=== PATIENT | male | born 1985 | race Caucasian/White ===

== ENCOUNTER 2016-10-24 06:03 | Inpatient (IN) | payer OTHER ==
--- NOTE | 2016-10-19 12:08 | PREOPHP ---
DATE OF ADMISSION: 10/24/2016 Scheduled date of admission 10/24/[address] Regis Stewart. Dear Dr. Stewart: Thank you very much for allowing me to participate in the care of Mr. Corcoran. HISTORY OF PRESENT ILLNESS: He is a charming 30-year-old gentleman with a history of L4-L5 disk dis ease that has failed conservative attempts at treatment. He is being brought in electively to have repair. PAST MEDICAL HISTORY: 1. L4-L5 disk disease with sciatica. 2. Usual childhood diseases. 3. History of varicella. PAST SURGICAL HISTORY: He has never had prior surgeries. ALLERGIES: HE HAS NO KNOWN MEDICAL ALLERGIES. MEDICATIONS: He is on no medications. SOCIAL HISTORY: He was born in [facility] and raised here. He has a high school education without experience. 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 Jana arce lives with his parents and pets and is single and reports he has not been sexually active since he injured his back. FAMILY HISTORY: Negative for coronary artery disease, positive for diabetes, positive for hypertens ion, negative for stroke. Negative for asthma, negative for glaucoma, positive for migraine, negati ve for colon cancer, negative for prostate cancer, negative for anesthesia reactions. REVIEW OF SYSTEMS: HEAD AND EYES: Fully negative. ENT: Negative. RESPIRATORY: Negative. CARDIAC: Negative. HEMATOLOGIC: Negative. GASTROINTESTINAL: Negative. UROLOGIC: Negative. PSYCHIATRIC: Negative. ENDOCRINE: Negative. MUSCULOSKELETAL: Notable for sciatica and otherwise negative. NEUROLOGIC: Similarly is notable for the sciatica symptoms and otherwise negative. GENERAL: Demonstrates no weight change, no fever, chills or sweats. No changing skin lesions and i s negative. PHYSICAL EXAMINATION: VITAL SIGNS: At time of physical exam, he has a height of 5 feet 10 inches, weight is 239 pounds, b lood pressure 124/72, pulse 80, temperature 98.7, respirations 16. HEENT: NC/AT; PERRL, EOMI, anicteric, fundi are without note; tympanic membranes are without note; oropharynx demonstrates no lesions. NECK: Supple. There is a midline trachea. There is no thyromegaly; pulses are 2+ without bruits. RESPIRATORY: Clear to auscultation and percussion. CARDIAC: Demonstrates no JVD, a regular rate and rhythm without rubs, murmurs or gallops. ABDOMEN: Soft, nontender, active bowel sounds, no hepatosplenomegaly, no CVA tenderness, no hernias , no bruits. EXTREMITIES: Demonstrate no clubbing, cyanosis, or edema. NEUROLOGIC: Nonfocal. LABORATORY DATA: Chest x-ray demonstrates fair inspiration, normal cardiac size and silhouette. No rmal bones and soft tissues, normal lungs. No evidence of TB; Sodium 143, potassium 4.3, chloride 9 7, bicarbonate 30, BUN 13, creatinine 0.9, random blood sugar 89. SGPT is elevated at 63, white coun t 8.3, hemoglobin 16.3, hematocrit 49.9, platelet count 225. Pro time 11.7 with an INR of 1.01. PT T is 33 seconds. Urinalysis 1.020, pH is 6.5, dipstick is negative. EKG demonstrates sinus rhythm at 70 with intervals 0.16, 0.10, 0.36 and axis of 40 degrees, nonspecific intraventricular conductio n delay, otherwise unremarkable. ASSESSMENT AND PLAN: Preoperative medical consultation prior to elective lumbar laminectomy versus microdiskectomy under general anesthesia. At this time, I find Mr. Corcoran to be an acceptable surg ical candidate and concur with your plans to proceed with surgery. Given his relative youth he is a little bit easier to evaluate. I believe he is at average surgical risk as compared to his young a ge-matched peers and should do well using all standard and routine anesthesia precautions. Using Go ldman's risk classification he is at low risk for cardiac complications. Dictated By: MICHELL CUNNINGHAM MD, JR/JOHNNY Conf#: [id number] DID#: [id number] CC: REGIS STEWART MD;*EndCC*
[~2016-10-24] VITALS: Ht 177.8 cm; Wt 105.7 kg
[2016-10-24] VITALS (32 sets, daily range): BP systolic 115–156; BP diastolic 52–79; PULSE 68–90; RESP 11–23; Ht 177.8 cm; Wt 105.7 kg
[2016-10-24] MEDS ORDERED: CEFAZOLIN 2 GM/50 ML (PMX) 50 ML IVPB ONE (06:37)
[2016-10-24] MEDS: LACTATED RINGER'S 1,000 ML IV* SCH ×2 (06:49)
--- NOTE | 2016-10-24 06:56 | HPN ---
Date/Time of Note Date/Time of Note DATE: 10/24/16 TIME: 06:56 Interval H&P Admission Note Pt. seen H&P reviewed: No system changes JANICE HICKS MD Oct 24, 2016 06:56
[2016-10-24] MEDS ORDERED: LIDOCAINE 2% (SDV) 5 ML INJ ONE (07:00)
[2016-10-24] MEDS ORDERED: PROPOFOL 20 ML ONE ×2 (07:00→11:43)
[2016-10-24] MEDS ORDERED: FENTAnyl 50 MCG/ML VIAL ONE ×2 (07:00→09:05)
[2016-10-24] MEDS ORDERED: OCULAR LUBRICANT 3.5 GM OPH OINT ONE (07:00)
[2016-10-24] MEDS ORDERED: SUCCINYLCHOLINE CHLORIDE 100 MG/5 ML SYG IV ONE (07:00)
[2016-10-24] MEDS ORDERED: ROCURONIUM 50 MG INJ ONE (07:00)
[2016-10-24] MEDS ORDERED: CEFAZOLIN 2 GM/50 ML (PMX) 50 ML IVPB SCH (07:00)
[2016-10-24] MEDS ORDERED: MIDAZOLAM 1 MG/ML 2 ML INJ ONE (07:00)
[2016-10-24] MEDS ORDERED: DEXAMETHASONE 4 MG/ML 1 ML INJ ONE (07:26)
[2016-10-24] MEDS ORDERED: ONDANSETRON 4 MG INJ ONE (07:26)
[2016-10-24] MEDS ORDERED: LABETALOL HCL 20MG INJ ONE ×2 (07:33→08:34)
[2016-10-24] MEDS ORDERED: GELATIN SIZE 100 SPONGE ONE (07:35)
[2016-10-24] MEDS ORDERED: BUPIVACAINE 0.25% (MPF) 10 ML 10 ML VIAL ONE (07:35)
[2016-10-24] MEDS ORDERED: POLYMYXIN/BACITRACIN 1L IRRIG ONE (07:35)
[2016-10-24] MEDS ORDERED: THROMBIN 5000 UNIT VIAL ONE (07:35)
[2016-10-24] MEDS ORDERED: hydrALAzine 20 MG INJ ONE (07:36)
[2016-10-24] MEDS ORDERED: HYDROmorphONE 2 MG/ML SYG ONE (07:38)
[2016-10-24] MEDS ORDERED: DEXTROSE ONE (07:39)
[2016-10-24] MEDS ORDERED: NICARDIPINE ONE (07:39)
[2016-10-24] MEDS ORDERED: nitroGLYCerin 50 MG INJ ONE (07:43)
[2016-10-24] MEDS ORDERED: MEPERIDINE 25 MG INJ IV PRN (08:30)
[2016-10-24] MEDS ORDERED: OXYCODONE/ACETAMINOPHEN (5/325) TAB PO PRN ×2 (08:30)
[2016-10-24] MEDS ORDERED: METOCLOPRAMIDE 10 MG INJ IV PRN (08:30)
[2016-10-24] MEDS ORDERED: hydrALAzine 20 MG INJ IV PRN (08:30)
[2016-10-24] MEDS ORDERED: PROCHLORPERAZINE 10 MG INJ IV PRN (08:30)
[2016-10-24] MEDS ORDERED: FENTAnyl 50 MCG/ML VIAL IV PRN (08:30)
[2016-10-24] MEDS ORDERED: HYDROmorphONE (0.2 MG/ML) 10ML SYG IV PRN ×2 (08:30)
[2016-10-24] MEDS ORDERED: LABETALOL HCL 20MG INJ IV PRN (08:30)
[2016-10-24] MEDS ORDERED: DIPHENHYDRAMINE 50 MG INJ IV PRN (08:30)
[2016-10-24] MEDS ORDERED: ONDANSETRON 4 MG INJ IV PRN (08:30)
[2016-10-24] MEDS ORDERED: GLYCOPYRROLATE 1 MG INJ ONE (09:15)
[2016-10-24] MEDS ORDERED: NEOSTIGMINE 3 MG/3 ML SYRINGE ONE (09:15)
--- NOTE | 2016-10-24 09:41 | RADRPT ---
PROCEDURE: XR lumbosacral Spine. CLINICAL INDICATION: Intraoperative localization. Cervical spinal surgical procedure. TECHNIQUE: 1 cross-table lateral view of the lumbosacral spine was submitted. The images were revi ewed on a PACS workstation. COMPARISON: None. FINDINGS: [place] have been directed from a posterior approach to the L3-L4 disk as well as the superior to L5 vertebral. There is straightening of the normal lordotic curvature without subluxation and the oss eous elements appear intact. IMPRESSION: Intraoperative image of the lumbosacral spine for the purpose of localization. Physician Samara Date Time Electronically viewed and signed by Physician Samara on 10/24/2016 09:41 /
[2016-10-24] MEDS: DEXTROSE 5%-0.45% NACL 1,000 ML IV SCH ×3 (09:46→19:46)
--- NOTE | 2016-10-24 09:47 | RADRPT ---
PROCEDURE: XR Lumbosacral Spine. CLINICAL INDICATION: Intraoperative localization. Cervical spinal surgical procedure. TECHNIQUE: A single view of the lumbosacral spine was submitted. The imaging was reviewed on a PACS workstation. COMPARISON: None. FINDINGS: A single image was submitted for localization during the procedure in progress. IMPRESSION: Lumbosacral spinal x-rays performed for intraoperative localization. Physician aSmara Date Time Electronically viewed and signed by Physician Samara on 10/24/2016 09:47 /
[2016-10-24] MEDS ORDERED: NACL 0.9% 3 ML SYG IV SCH (10:00)
[2016-10-24] MEDS ORDERED: HYDROCODONE/APAP (5/325) TAB PO PRN (10:00)
[2016-10-24] MEDS ORDERED: ACETAMINOPHEN 325 MG TAB PO PRN (10:00)
[2016-10-24] MEDS ORDERED: ZOLPIDEM 5 MG TAB PO PRN (10:00)
[2016-10-24] MEDS ORDERED: NALOXONE (0.4 MG/ML) INJ IV PRN (10:00)
[2016-10-24] MEDS ORDERED: DIAZEPAM 5 MG/ML SYG IM PRN (10:00)
[2016-10-24] MEDS ORDERED: PROCHLORPERAZINE 10 MG TAB PO PRN (10:00)
[2016-10-24] MEDS ORDERED: CEPASTAT LOZENGE MT PRN (10:00)
[2016-10-24] MEDS ORDERED: TRIMETHOBENZAMIDE 100 MG/ML VIAL IM PRN (10:00)
[2016-10-24] MEDS ORDERED: AL HYDROX/MG HYDROX/SIMETH 30 ML CUP PO PRN (10:00)
[2016-10-24] MEDS ORDERED: DIPHENHYDRAMINE 50 MG CAP PO PRN (10:00)
[2016-10-24] MEDS ORDERED: BETHANECHOL 25 MG TAB PO PRN (10:00)
--- NOTE | 2016-10-24 10:08 | OPPN ---
Date/Time of Note Date/Time of Note DATE: 10/24/16 TIME: 09:55 Operative/Procedure Note Pre-Operative Diagnosis 1. Lumbar spinal stenosis at L4 2. Lumbar spinal stenosis at L5 3. Herniated lumbar disc L4-5 centrally and to the right 4. Herniated lumbar disc L5-S1 centrally Post-Operative Diagnosis Same Procedure 1. Central decompressive laminectomy at L4 2. Central decompressive laminectomy at L5 3. Microdiscectomy L4-5 on the right 4. Microdiscectomy L5-S1 on the right 5. Medial facetectomy and foraminotomies at L4-5 and L5-S1 bilaterally 6. Cosmetic wound closure (12 cm) 7. Lateral localizing lumbar radiographs (2) 8. Intraoperative nerve monitoring (180 minutes) Surgeon: JANICE HICKS MD Retail Manager: CLIFF RUIZ Anesthesiologist: ALBERTO RENEE MD Findings Lumbar spinal stenosis at L4 and L5 was confirmed. A herniated disc at L4-5 centrally and to the right and at L5-S1 centrally was also confirmed. Blood Usage/Administration None Implants/Grafts: Not applicable Estimated blood loss: 10 - 50 ml's Drains 2 medium Hemovac drains employed Specimens The spinous process of L4 and L5 as well as herniated disc material of L4-5 and L5-S1 were sent to the laboratory for pathologic study. Complications: None Anesthesia type: general JANICE HICKS MD Oct 24, 2016 10:06
[2016-10-24] MEDS: HYDROmorphONE 0.2 MG/ML PCA IV SCH ×2 (10:20→20:26)
--- NOTE | 2016-10-24 12:05 | OPR ---
DATE OF OPERATION: 10/24/2016 PREOPERATIVE DIAGNOSES: 1. Lumbar spinal stenosis at L4. 2. Lumbar spinal stenosis at L5. 3. Herniated disk L4-L5 centrally and to the right. 4. Herniated disk L5-S1 centrally. POSTOPERATIVE DIAGNOSES: 1. Lumbar spinal stenosis at L4. 2. Lumbar spinal stenosis at L5. 3. Herniated disk L4-L5 centrally and to the right. 4. Herniated disk L5-S1 centrally. OPERATION PERFORMED: 1. Central decompressive laminectomy at L4. 2. Central decompressive laminectomy at L5. 3. Microdiskectomy, L4-L5 on the right. 4. Microdiskectomy, L5-S1 on the right. 5. Medial facetectomy and foraminotomy, L4-L5 and L5-S1 bilaterally. 6. Cosmetic wound closure (12 cm). 7. Lateral localized lumbar radiographs (2). 8. Intraoperative nerve monitoring (3 hours). SURGEON: Regis Stewart MD INCOMING FREIGHT CLERK: LISSY Jimenez ANESTHESIA: General endotracheal. ANESTHESIOLOGIST: Dr. Dowell ESTIMATED BLOOD LOSS: 50 mL, none replaced. DRAINS: Two medium Hemovac drains employed. COMPLICATIONS: None. PERTINENT HISTORY AND PHYSICAL: This is a 30-year-old male who sustained an injury to his back in t he course of employment on 04/13/2015. He has had extensive care since that time, has remained symp tomatic with back and bilateral leg pain, right greater than left, which have been unrelieved by con servative management. He has undergone a number of diagnostic studies including an MRI of the lumba r spine which demonstrated a herniation of the L4-L5 and L5-S1 disk along with marked canal stenosis at L4 and to a lesser degree at L5. Treatment options were discussed with the patient, who elected to proceed with surgery. OPERATIVE FINDINGS AT SURGERY: Lumbar spinal stenosis and disk herniations at L4 and L5 were confir med. The baseline intraoperative nerve monitoring revealed a decrease in the L3 potential on the ri ght of 10%, the L4 potential on the right of 50%, the L5 potential on the left of 40% and the L5 pot ential on the right of 50%, the left S1 potential of 10%, and the right S1 potential of 60%. These all returned to normal with exception of the right L5 potential which remained 10% below normal at t he completion of the surgery. OPERATIVE PROCEDURE: With the patient in supine position after satisfactory induction of general en dotracheal anesthesia by Dr. Dowell, the patient was turned to the prone kneeling position on the [facility] frame. All pressure points were carefully padded. The back was prepped and draped in the usua l sterile fashion. Athrombic pumps were applied to the legs below the knees to prevent venous stasi s during and after the procedure. Two spinal needles were placed. An indwelling Barrios catheter was also placed preoperatively to facilitate bladder drainage during and after the procedure. Two spin al needles were placed next to what was felt to be the L4 and L5 spinous processes, lateral roentgen ogram was taken to confirm anatomic localization. A 12 cm incision then carried out midline from L3 to the sacrum through skin and subcutaneous tissue to the deep fascia after skin was infiltrated wi th 0.25% Marcaine without epinephrine for postoperative analgesia. Superficial retractors were plac ed and hemostasis secured with electrocautery. Throughout the procedure, copious amounts of antibac terial irrigating solution used to periodically irrigate the wound. The fascia was incised in midli ne with a hot knife and a bilateral subperiosteal dissection carried out from L4 to the sacrum. Anne p retractors were placed and deep hemostasis secured with electrocautery. Throughout the procedure, copious amounts of antibacterial irrigating solution were used to periodically irrigate the wound. A second intraoperative radiograph was taken with David clamps placed in what was felt to be the s pinous process of L4 and L5. This was confirmed with a second x-ray. A central decompressive hien ectomy at L4 and L5 was then carried out using a Daren right-angle bone rongeur, Lesofiaell rongeur, Kerrison punches and curettes. The ligamentum flavum was excised with sharp dissection at both leve ls. The operating microscope was then moved into place. A medial facetectomy and foraminotomy was accomplished using small hand osteotome, mallet, Kerrison punches, and curettes. The epidural hemos tasis was secured with bipolar electrocautery on a low setting. Attention then turned to the L4-L5 level on the right where the L5 root was mobilized medially and p rotected with Rekha nerve retractor using microdissection technique. This revealed a herniation of the L4-L5 disk. A 15 blade knife used to cut a rectangular window in the annulus and posterior l ongitudinal ligament and multiple degenerative disk fragments were harvested with pituitary rongeurs and sent to laboratory for pathologic study. Additional fragments were harvested using Carlos Manuel cur ettes and Beatrice curettes. A thorough search of the floor of the canal was made with an arthroscopi c probe and no additional fragments were encountered. The attention then turned to the L5-S1 level where the S1 root was mobilized medially on the right a nd protected with Rekha nerve retractor using microdissection technique. This revealed a herniat ion of the L5-S1 disk. A 15 blade knife used to cut a rectangular window in the annulus and posteri or longitudinal ligament, multiple degenerative disk fragments were harvested with pituitary rongeur s and sent to laboratory for pathologic study. Additional fragments were harvested using Carlos Manuel cu rettes and Beatrice curettes. A thorough search of the floor of the canal was made with an arthroscop ic probe and no additional fragments were encountered. The epidural hemostasis was again secured wi th bipolar electrocautery on a low setting. The anesthesiologist was asked to perform a Valsalva ma neuver at 40 mmHg and no spinal fluid leakage was noted. The wound was then closed in layers over 2 medium Hemovac drains, one below the fascia and one above the fascia using #1 Vicryl [id number] t approximating sutures in deep paralumbar musculature and deep fascia of back, 2-0 Vicryl subcutane ous approximating sutures in subcutaneous tissue, and using #1 Stratafix sutures on the deep paralum bar musculature and deep fascia of the back, 2-0 Stratafix sutures on the subcutaneous tissue, and a 4-0 Vicryl subcuticular cosmetic closing suture on the skin. Dermabond and sterile compressive brenda ssings were applied. The patient having tolerated the procedure well, was then turned to supine pos ition onto his bed and extubated by Dr. Dowell. He was transported to the recovery room in satisfacto ry condition. At the conclusion of the procedure, sponge, instrument, and needle counts were all co rrect. NEED FOR FOREST LANDSCAPE ECOLOGY PROFESSOR: During this spinal surgical procedure, my social human services assistants was used to retrac t and protect the spinal nerves and dural sac. My social human services assistants also employed the suction catheters to e vacuate blood from the surgical field to improve visualization of the neural structures. The assista nt was medically necessary to facilitate the completion of the surgery in a safe and expeditious man ner. State of [place] regulations, as well as hospital bylaws, preclude the use of non-licensed [facility] care personnel such as operating room technicians, to perform these functions. Throughout the procedure, neural monitoring was carried out by [email or web address] including EMG, SSEP, and MEP monitoring of the L3, L4, L5 and S1 nerve roots bilaterally along with spinal cord potentials. These were interpreted by neurologist employed by [employer]. Dictated By: REGIS STEWART MD TM/NTS Conf#: [id number] DID#: [id number] CC: MICHELL CUNNINGHAM MD;*[facility]*
[2016-10-24] MEDS: CEFAZOLIN 1 GM/50 ML (PMX) 50 ML IVPB SCH ×2 (12:24→19:33)
[2016-10-24] MEDS: DIAZEPAM 5 MG TAB PO PRN ×2 (12:36→16:12)
[2016-10-24] MEDS: ONDANSETRON 4 MG INJ IV PRN (16:17)
--- NOTE | 2016-10-24 17:46 | CONS ---
Date/Time of Note Date/Time of Note DATE: 10/24/16 TIME: 17:42 Assessment/Plan Assessment/Plan Problems: (1) Status post lumbar laminectomy Status: Acute Comment: Patient is resting comfortably in bed. He reports the symptoms he had preoperatively of sciatica in the legs have resolved. He is having postoperative surgical incisional pain which is controlled with the pain medications. There is no evidence of any type of postoperative complication at this time (2) Obesity (BMI 30.0-34.9) Status: Chronic Comment: Noted and counseled Consultation Date/Type/Reason Admit Date/Time Oct 24, 2016 at 06:03 Initial Consult Date 10/24/2016 Type of Consultation: Internal medicine Reason for Consultation Postop management Referring Provider: JANICE HICKS 24 HR Interval Summary Free Text/Dictation Patient resting in bed postop fully conversant awake and alert Detailed Summary Respiratory: no complaints Cardiovascular: no complaints Gastrointestinal: no complaints Genitourinary: no complaints Exam/Review of Systems Vital Signs Vitals Vital Signs Date Time Temp Pulse Resp B/P Pulse Ox O2 Delivery O2 Flow Rate FiO2 10/24/16 12:19 98.4 96 16 133/66 96 10/24/16 11:39 Nasal Cannula 10/24/16 10:12 10.0 Exam Constitutional: alert, oriented Neck: non-tender, supple Respiratory: clear to auscultation, normal air movement Cardiovascular: nl pulses, regular rate and rhythm Gastrointestinal: nl liver, spleen, non-tender, soft Medications Medications Current Medications Lactated Ringer's 1,000 ml @ 20 mls/hr Q24H IV* Last administered on 06:49; Admin Dose 20 MLS/HR; Start 10/24/16 at 07:00 Lactated Ringer's 1,000 ml @ 20 mls/hr Q24H IV* Last administered on 06:49; Admin Dose 20 MLS/HR; Start 10/24/16 at 07:00 Dextrose/Sodium Chloride (D5-1/2ns) 1,000 ml @ 100 mls/hr Q10H IV Last administered on 10/24/16 12:25; Admin Dose 100 MLS/HR; Start 10/24/16 at 09:46 Acetaminophen/ Hydrocodone Bitart ([place] (5/325)) 1 tab Q4H PRN PO PAIN LEVEL 1 -5; Start 10/24/16 at 10:00 Acetaminophen/ Hydrocodone Bitart 2 tab 2 tab Q4H PRN PO PAIN LEVEL 6-10; Start 10/24/16 at 10:00 Cefazolin Sodium (Ancef 1 Gm/50 ml (Pmx)) 50 ml @ 100 mls/hr Q6 IVPB Last administered on 10/24/16 12:24; Admin Dose 100 MLS/HR; Start 10/24/16 at 12:00 ; Stop 10/25/16 at 06:29 Zolpidem Tartrate (Ambien) 5 mg HS PRN PO INSOMNIA; Start 10/24/16 at 10:00 Prochlorperazine (Compazine) 10 mg Q4H PRN PO NAUSEA AND/OR VOMITING; Start at 10:00 Trimethobenzamide HCl (Tigan) 200 mg Q4H PRN IM NAUSEA AND/OR VOMITING; Start 10/24/16 at 10:00 Ondansetron HCl (Zofran Inj) 4 mg Q6H PRN IV NAUSEA AND/OR VOMITING Last administered on 10/24/16 16:17; Admin Dose 4 MG; Start 10/24/16 at 10:00 Al Hydrox/Mg Hydrox/Simethicone (Mag-Al Plus) 15 ml Q4H PRN PO CONSTIPATION; Start 10/24/16 at 10:00 Docusate Sodium (Colace) 100 mg BID PO ; Start 10/25/16 at 09:00 Acetaminophen (Tylenol Tab) 650 mg Q4H PRN PO TEMP GREATER THAN 101F OR RAIN; Start 10/24/16 at 10:00 Ascorbic Acid (Vitamin C) 1,000 mg BID PO ; Start 10/25/16 at 09:00 Ferrous Sulfate (Ferrous Sulfate (Ec)) 325 mg TID PO ; Start 10/25/16 at 09:00 Ranitidine HCl (Zantac) 150 mg BID PO ; Start 10/24/16 at 21:00 Diazepam (Valium) 5 mg Q4H PRN PO MUSCLE SPASMS Last administered on 10/24/16 16:12; Admin Dose 5 MG; Start 10/24/16 at 10:00 Diazepam (Valium) 5 mg Q4H PRN IM MUSCLE SPASMS; Start 10/24/16 at 10:00 Phenol (Cepastat Lozenge) 1 lozenge PRN PRN MT SORE THROAT Last administered on 10/24/16 12:36; Admin Dose 1 LOZENGE; Start 10/24/16 at 10:00 Bethanechol Chloride (Urecholine) 25 mg PRN PRN PO UNABLE TO VOID; Start at 10:00 Diphenhydramine HCl (Benadryl) 50 mg Q6H PRN PO PRURITUS; Start 10/24/16 at 10: 00 Hydromorphone HCl (Dilaudid ANALYTICS CONSULTANT) Q4PCA IV Last administered on 10/24/16 10:20 ; Admin Dose 6 MG; Start 10/24/16 at 10:00 Naloxone HCl (Narcan) 0.2 mg Q2M PRN IV RR 8 BREATHS/MIN OR LESS; Start at 10:00 MICHELL CUNNINGHAM MD Oct 24, 2016 17:46
[2016-10-24] MEDS: RANITIDINE 150 MG TAB PO SCH (20:28)
[2016-10-25] VITALS: BP 111/55; PULSE 68; RESP 18
[2016-10-25] MEDS: ONDANSETRON 4 MG INJ IV PRN ×2 (00:07→18:50)
[2016-10-25] MEDS: DEXTROSE 5%-0.45% NACL 1,000 ML IV SCH ×2 (00:08→15:46)
[2016-10-25] MEDS: CEFAZOLIN 1 GM/50 ML (PMX) 50 ML IVPB SCH ×2 (00:08→05:34)
[2016-10-25 04:00] VITALS: BP 116/59; PULSE 68; RESP 18
[2016-10-25 05:46] LABS: CREATININE 1.05 mg/dl (0.61-1.24)
[2016-10-25 05:47] LABS: CALCIUM 8.4 mg/dl (8.4-10.2)
[2016-10-25 06:23] LABS: HEMATOCRIT 38.6 % (42.0-52.0); HEMOGLOBIN 13.3 g/dl (14.0-18.0)
[2016-10-25] MEDS: LACTATED RINGER'S 1,000 ML IV* SCH ×2 (06:34)
--- NOTE | 2016-10-25 07:28 | PN ---
Date/Time of Note Date/Time of Note DATE: 10/25/16 TIME: 07:26 Assessment/Plan Lines/Catheters IV Catheter Type (from Nrs): Peripheral IV Barrios in Place (from Nrs): Yes Subjective 24 Hr Interval Summary Pt is POD #1 from multilevel lumbar decompression and discectomy. He is doing well. VS stable, Hgb is 13.3. Drain output was 90cc since surgery, this will be continued to be monitored. He is doing well. Plan today is to progress ambulation. Exam/Review of Systems Vital Signs Vitals Vital Signs Date Time Temp Pulse Resp B/P Pulse Ox O2 Delivery O2 Flow Rate FiO2 10/25/16 04:00 68 18 116/59 99 Nasal Cannula 2.0 10/24/16 19:25 97.8 Intake and Output 10/24/16 10/24/16 10/25/16 15:00 23:00 07:00 Intake Total 1900 ml 750 ml 1900 ml Output Total 195 ml 300 ml 1190 ml Balance 1705 ml 450 ml 710 ml Results Result Diagram: 10/25/16 0430 10/25/16 0430 CLIFF RUIZ Oct 25, 2016 07:28
[2016-10-25] MEDS ORDERED: BETHANECHOL 25 MG TAB PO PRN (08:00)
[2016-10-25 08:07] VITALS: BP 133/67; RESP 16
[2016-10-25] MEDS: ASCORBIC ACID 500 MG TAB PO SCH ×2 (08:27→21:33)
[2016-10-25] MEDS: RANITIDINE 150 MG TAB PO SCH ×2 (08:27→21:33)
[2016-10-25] MEDS: DOCUSATE SODIUM 100 MG CAP PO SCH ×2 (08:27→21:33)
[2016-10-25] MEDS: FERROUS SULFATE (EC) 325 MG TAB PO SCH ×3 (08:27→21:33)
[2016-10-25] MEDS: HYDROCODONE/APAP (5/325) TAB PO PRN ×4 (09:48→21:37)
[2016-10-25 10:04] LABS: ADD UMIC NO; URINE BILIRUBIN (Dip) NEGATIVE (NEGATIVE); URINE BLOOD (Dip) NEGATIVE (NEGATIVE); URINE COLOR LT. YELLOW (YELLOW); URINE GLUCOSE (Dip) NEGATIVE (NEGATIVE); URINE KETONES (Dip) NEGATIVE (NEGATIVE); URINE LEUKOCYTE ESTERASE (Dip) NEGATIVE (NEGATIVE); URINE NITRITE (Dip) NEGATIVE (NEGATIVE); URINE TOTAL PROTEIN (Dip) NEGATIVE (NEGATIVE); URINE UROBILINOGEN (Dip) 0.2 E.U./dL (0.1-1.0)
--- NOTE | 2016-10-25 18:43 | CONS ---
Date/Time of Note Date/Time of Note DATE: 10/25/16 TIME: 18:37 Assessment/Plan Assessment/Plan Problems: (1) Status post lumbar laminectomy Status: Acute Comment: Continue postoperative care. He is attempting to work as rehabilitation and walking is doing fair. I do not believe that we have acquired an interesting issue with his GI tract but will keep a careful eye on this. Consultation Date/Type/Reason Admit Date/Time Oct 24, 2016 at 06:03 Initial Consult Date 10/24/2016 Type of Consultation: Internal medicine Referring Provider: JANICE HICKS MD 24 HR Interval Summary Constitutional: no complaints Detailed Summary Respiratory: no complaints (No shortness of breath) Cardiovascular: no complaints (No chest pain or palpitations) Gastrointestinal: diarrhea (Notes onset of nausea and diarrhea late this afternoon.), nausea Genitourinary: no complaints Exam/Review of Systems Vital Signs Vitals Vital Signs Date Time Temp Pulse Resp B/P Pulse Ox O2 Delivery O2 Flow Rate FiO2 10/25/16 09:41 Nasal Cannula 10/25/16 08:07 98.0 65 16 133/67 100 10/25/16 04:00 2.0 Intake and Output 10/24/16 10/24/16 10/25/16 15:00 23:00 07:00 Intake Total 1900 ml 750 ml 1900 ml Output Total 195 ml 300 ml 1190 ml Balance 1705 ml 450 ml 710 ml Exam Constitutional: alert, oriented Respiratory: clear to auscultation, normal air movement Cardiovascular: nl pulses, regular rate and rhythm Results Result Diagram: 10/25/16 0430 10/25/16 0430 Results 24 hrs Laboratory Tests Test 10/25/16 04:30 10/25/16 09:15 Anion Gap 16 Blood Urea Nitrogen 13 Calcium Level 8.4 Carbon Dioxide Level 29 Chloride Level 100 Creatinine 1.05 Glucose Level 112 Hematocrit 38.6 L Hemoglobin 13.3 L Potassium Level 4.0 Sodium Level 141 Urine Bilirubin NEGATIVE Urine Clarity CLEAR Urine Color LT. YELLOW Urine Glucose NEGATIVE Urine Hemoglobin NEGATIVE Urine Ketones NEGATIVE Urine Leukocyte Esterase NEGATIVE Urine Nitrite NEGATIVE Urine Specific [place] <=1.005 L Urine Total Protein NEGATIVE Urine Urobilinogen 0.2 E.U./dL Urine pH 5.5 Medications Medications Current Medications Lactated Ringer's 1,000 ml @ 20 mls/hr Q24H IV* Last administered on 06:49; Admin Dose 20 MLS/HR; Start 10/24/16 at 07:00 Lactated Ringer's 1,000 ml @ 20 mls/hr Q24H IV* Last administered on 06:49; Admin Dose 20 MLS/HR; Start 10/24/16 at 07:00 Dextrose/Sodium Chloride (D5-1/2ns) 1,000 ml @ 100 mls/hr Q10H IV Last administered on 10/25/16 00:08; Admin Dose 100 MLS/HR; Start 10/24/16 at 09:46 Acetaminophen/ Hydrocodone Bitart ([place] (5/325)) 1 tab Q4H PRN PO PAIN LEVEL 1 -5; Start 10/24/16 at 10:00 Acetaminophen/ Hydrocodone Bitart ([place] (5/325)) 2 tab Q4H PRN PO PAIN LEVEL 6 -10 Last administered on 10/25/16 17:30; Admin Dose 2 TAB; Start 10/24/16 at 10 :00 Zolpidem Tartrate (Ambien) 5 mg HS PRN PO INSOMNIA; Start 10/24/16 at 10:00 Prochlorperazine (Compazine) 10 mg Q4H PRN PO NAUSEA AND/OR VOMITING Last administered on 10/24/16 20:28; Admin Dose 10 MG; Start 10/24/16 at 10:00 Trimethobenzamide HCl (Tigan) 200 mg Q4H PRN IM NAUSEA AND/OR VOMITING; Start 10/24/16 at 10:00 Ondansetron HCl (Zofran Inj) 4 mg Q6H PRN IV NAUSEA AND/OR VOMITING Last administered on 10/25/16 00:07; Admin Dose 4 MG; Start 10/24/16 at 10:00 Al Hydrox/Mg Hydrox/Simethicone (Mag-Al Plus) 15 ml Q4H PRN PO CONSTIPATION; Start 10/24/16 at 10:00 Docusate Sodium (Colace) 100 mg BID PO Last administered on 10/25/16 08:27; Admin Dose 100 MG; Start 10/25/16 at 09:00 Acetaminophen (Tylenol Tab) 650 mg Q4H PRN PO TEMP GREATER THAN 101F OR RAIN; Start 10/24/16 at 10:00 Ascorbic Acid (Vitamin C) 1,000 mg BID PO Last administered on 10/25/16 08:27 ; Admin Dose 1,000 MG; Start 10/25/16 at 09:00 Ferrous Sulfate (Ferrous Sulfate (Ec)) 325 mg TID PO Last administered on 12:13; Admin Dose 325 MG; Start 10/25/16 at 09:00 Ranitidine HCl (Zantac) 150 mg BID PO Last administered on 10/25/16 08:27; Admin Dose 150 MG; Start 10/24/16 at 21:00 Diazepam (Valium) 5 mg Q4H PRN PO MUSCLE SPASMS Last administered on 10/24/16 16:12; Admin Dose 5 MG; Start 10/24/16 at 10:00 Diazepam (Valium) 5 mg Q4H PRN IM MUSCLE SPASMS; Start 10/24/16 at 10:00 Phenol (Cepastat Lozenge) 1 lozenge PRN PRN MT SORE THROAT Last administered on 10/24/16 12:36; Admin Dose 1 LOZENGE; Start 10/24/16 at 10:00 Diphenhydramine HCl (Benadryl) 50 mg Q6H PRN PO PRURITUS; Start 10/24/16 at 10: 00 Hydromorphone HCl (Dilaudid MEDICAL PRACTICE ASSISTANT) Q4PCA IV Last administered on 10/24/16 20:26 ; Admin Dose 6 MG; Start 10/24/16 at 10:00 Naloxone HCl (Narcan) 0.2 mg Q2M PRN IV RR 8 BREATHS/MIN OR LESS; Start at 10:00 Bethanechol Chloride (Urecholine) 25 mg PRN PRN PO UNABLE TO VOID Last administered on 10/25/16 08:27; Admin Dose 25 MG; Start 10/25/16 at 08:00 MICHELL CUNNINGHAM MD Oct 25, 2016 18:42
[2016-10-25 20:55] VITALS: BP 133/66; RESP 20
[2016-10-26] MEDS: DEXTROSE 5%-0.45% NACL 1,000 ML IV SCH ×2 (01:22→11:46)
[2016-10-26] MEDS: LACTATED RINGER'S 1,000 ML IV* SCH ×2 (06:14)
--- NOTE | 2016-10-26 06:59 | PN ---
Date/Time of Note Date/Time of Note DATE: 10/26/16 TIME: 06:57 Assessment/Plan Lines/Catheters IV Catheter Type (from Nrs): Peripheral IV Barrios in Place (from Nrs): No Subjective 24 Hr Interval Summary Patient is postop day #2 following a 2 level decompressive laminectomy with microdiscectomy. He is comfortable in bed. He is doing well with physical therapy. His examination reveals neurovascular structures to be intact distally. His Hemovac had minimal drainage and was removed. His incision is clean and dry and was redressed. I anticipate he will be discharged from the hospital later today after being cleared by physical therapy. He was given strict discharge precautions and instructions. He will follow-up in the office in 1-2 weeks. Exam/Review of Systems Vital Signs Vitals Vital Signs Date Time Temp Pulse Resp B/P Pulse Ox O2 Delivery O2 Flow Rate FiO2 10/25/16 20:55 97.3 78 20 133/66 96 10/25/16 09:41 Nasal Cannula 10/25/16 04:00 2.0 Intake and Output 10/25/16 10/25/16 10/26/16 15:00 23:00 07:00 Intake Total 400 ml 900 ml 1260 ml Output Total 910 ml 910 ml Balance 400 ml -10 ml 350 ml Results Result Diagram: 10/25/16 0430 10/25/16 0430 JANICE HICKS MD Oct 26, 2016 06:59
[2016-10-26 08:11] VITALS: BP 131/61; RESP 18
[2016-10-26] MEDS: DOCUSATE SODIUM 100 MG CAP PO SCH (08:46)
[2016-10-26] MEDS: FERROUS SULFATE (EC) 325 MG TAB PO SCH ×2 (08:46→13:31)
[2016-10-26] MEDS: ASCORBIC ACID 500 MG TAB PO SCH (08:47)
[2016-10-26] MEDS: RANITIDINE 150 MG TAB PO SCH (08:47)
[2016-10-26] MEDS: HYDROCODONE/APAP (5/325) TAB PO PRN ×2 (08:48→13:33)
--- NOTE | 2016-10-26 16:25 | PN ---
Date/Time of Note Date/Time of Note DATE: 10/26/16 TIME: 16:24 Assessment/Plan Lines/Catheters IV Catheter Type (from Nrsg): Saline Lock Barrios in Place (from Nrsg): No Subjective 24 Hr Interval Summary Pt did well today. He ambulated and was cleared for d/c. VS are stable. He reports good pain control. He will follow up with Dr. Stewart in 2 weeks. D/c instructions reviewed with pt. Exam/Review of Systems Vital Signs Vitals Vital Signs Date Time Temp Pulse Resp B/P Pulse Ox O2 Delivery O2 Flow Rate FiO2 10/26/16 08:11 99.3 84 18 131/61 97 10/25/16 09:41 Nasal Cannula 10/25/16 04:00 2.0 Intake and Output 10/25/16 10/25/16 10/26/16 15:00 23:00 07:00 Intake Total 400 ml 900 ml 1260 ml Output Total 910 ml 910 ml Balance 400 ml -10 ml 350 ml Results Result Diagram: 10/25/16 0430 10/25/16 0430 CLIFF RUIZ Oct 26, 2016 16:25
--- NOTE | 2016-10-26 17:53 | CONS ---
Date/Time of Note Date/Time of Note DATE: 10/26/16 TIME: 17:52 Assessment/Plan Assessment/Plan Problems: (1) Status post lumbar laminectomy Status: Acute Comment: Recuperating as expected in a nominal fashion without evidence of postoperative complications or untoward side effects. Ready for discharge with near-term onset of physical therapy and full rehabilitation. Overall expect good outcome. Consultation Date/Type/Reason Admit Date/Time Oct 24, 2016 at 06:03 Initial Consult Date 10/24/2016 Type of Consultation: Internal medicine Referring Provider: JANICE HICKS MD 24 HR Interval Summary Constitutional: no complaints Detailed Summary Respiratory: no complaints Cardiovascular: no complaints Gastrointestinal: no complaints Exam/Review of Systems Vital Signs Vitals Vital Signs Date Time Temp Pulse Resp B/P Pulse Ox O2 Delivery O2 Flow Rate FiO2 10/26/16 08:11 99.3 84 18 131/61 97 10/25/16 09:41 Nasal Cannula 10/25/16 04:00 2.0 Intake and Output 10/25/16 10/25/16 10/26/16 15:00 23:00 07:00 Intake Total 400 ml 900 ml 1260 ml Output Total 910 ml 910 ml Balance 400 ml -10 ml 350 ml Exam Constitutional: alert, oriented Cardiovascular: nl pulses, regular rate and rhythm Gastrointestinal: nl liver, spleen, non-tender, soft Results Result Diagram: 10/25/16 0430 10/25/16 0430 Medications Medications Current Medications Lactated Ringer's 1,000 ml @ 20 mls/hr Q24H IV* Last administered on 06:49; Admin Dose 20 MLS/HR; Start 10/24/16 at 07:00 Lactated Ringer's 1,000 ml @ 20 mls/hr Q24H IV* Last administered on 06:49; Admin Dose 20 MLS/HR; Start 10/24/16 at 07:00 Dextrose/Sodium Chloride (D5-1/2ns) 1,000 ml @ 100 mls/hr Q10H IV Last administered on 10/25/16 00:08; Admin Dose 100 MLS/HR; Start 10/24/16 at 09:46 Acetaminophen/ Hydrocodone Bitart ([place] (5/325)) 1 tab Q4H PRN PO PAIN LEVEL 1 -5; Start 10/24/16 at 10:00 Acetaminophen/ Hydrocodone Bitart ([place] (5/325)) 2 tab Q4H PRN PO PAIN LEVEL 6 -10 Last administered on 10/26/16 13:33; Admin Dose 2 TAB; Start 10/24/16 at 10: 00 Zolpidem Tartrate (Ambien) 5 mg HS PRN PO INSOMNIA; Start 10/24/16 at 10:00 Prochlorperazine (Compazine) 10 mg Q4H PRN PO NAUSEA AND/OR VOMITING Last administered on 10/24/16 20:28; Admin Dose 10 MG; Start 10/24/16 at 10:00 Trimethobenzamide HCl (Tigan) 200 mg Q4H PRN IM NAUSEA AND/OR VOMITING; Start 10/24/16 at 10:00 Ondansetron HCl (Zofran Inj) 4 mg Q6H PRN IV NAUSEA AND/OR VOMITING Last administered on 10/25/16 18:50; Admin Dose 4 MG; Start 10/24/16 at 10:00 Al Hydrox/Mg Hydrox/Simethicone (Mag-Al Plus) 15 ml Q4H PRN PO CONSTIPATION; Start 10/24/16 at 10:00 Docusate Sodium (Colace) 100 mg BID PO Last administered on 10/26/16 08:46; Admin Dose 100 MG; Start 10/25/16 at 09:00 Acetaminophen (Tylenol Tab) 650 mg Q4H PRN PO TEMP GREATER THAN 101F OR RAIN; Start 10/24/16 at 10:00 Ascorbic Acid (Vitamin C) 1,000 mg BID PO Last administered on 10/26/16 08:47; Admin Dose 1,000 MG; Start 10/25/16 at 09:00 Ferrous Sulfate (Ferrous Sulfate (Ec)) 325 mg TID PO Last administered on 13:31; Admin Dose 325 MG; Start 10/25/16 at 09:00 Ranitidine HCl (Zantac) 150 mg BID PO Last administered on 10/26/16 08:47; Admin Dose 150 MG; Start 10/24/16 at 21:00 Diazepam (Valium) 5 mg Q4H PRN PO MUSCLE SPASMS Last administered on 10/24/16 16:12; Admin Dose 5 MG; Start 10/24/16 at 10:00 Diazepam (Valium) 5 mg Q4H PRN IM MUSCLE SPASMS; Start 10/24/16 at 10:00 Phenol (Cepastat Lozenge) 1 lozenge PRN PRN MT SORE THROAT Last administered on 10/24/16 12:36; Admin Dose 1 LOZENGE; Start 10/24/16 at 10:00 Diphenhydramine HCl (Benadryl) 50 mg Q6H PRN PO PRURITUS; Start 10/24/16 at 10: 00 Hydromorphone HCl (Dilaudid VOLUNTEER SERVICES COORDINATOR) Q4PCA IV Last administered on 10/24/16 20:26 ; Admin Dose 6 MG; Start 10/24/16 at 10:00 Naloxone HCl (Narcan) 0.2 mg Q2M PRN IV RR 8 BREATHS/MIN OR LESS; Start at 10:00 Bethanechol Chloride (Urecholine) 25 mg PRN PRN PO UNABLE TO VOID Last administered on 10/25/16 08:27; Admin Dose 25 MG; Start 10/25/16 at 08:00 MICHELL CUNNINGHAM MD Oct 26, 2016 17:53
== END 2016-10-26 20:00 | disposition home or self-care (01) | DRG 520 ==
LOC: REC 06:03 → EDSTATUS 07:00 → MS1 11:42
PROVIDERS: ADMIT Orthopaedic Surgery; ATTEND Orthopaedic Surgery
PROC: 0SB20ZZ Excision of Lumbar Vertebral Disc, Open Approach (ICD-10-PCS; 2016-10-24)
PROC: 01NB0ZZ Release Lumbar Nerve, Open Approach (ICD-10-PCS; principal; 2016-10-24 07:00)
DX: M51.26 Other intervertebral disc displacement, lumbar region (principal); E66.9 Obesity, unspecified; M48.06 Spinal stenosis, lumbar region; Z68.33 Body mass index [BMI] 33.0-33.9, adult
CPT/HCPCS: 72020; 80048; 81003; 85014; 85018; 86850; 86900; 86901; 86920; 97116; 97162; 97530; J0330; J0360; J0690; J1100; J1170; J2250; J2405; J2710; J3010; J7042; J7120

== ENCOUNTER 2017-07-03 05:08 | Inpatient (IN) | payer OTHER ==
--- NOTE | 2017-06-28 09:57 | HP ---
Date/Time of Note Date/Time of Note DATE: 06/28/17 TIME: 09:49 Assessment/Plan VTE Prophylaxis VTE Prophylaxis Intervention: other Assessment/Plan Chief Complaint/Hosp Course Chest x-ray demonstrate normal bones and soft tissue normal cardiac size and silhouette normal lungs without TB; the 141 potassium 4.4 chloride 104 bicarb 29 BUN 12 creatinine 0.9 random blood sugar 108 MT: ALT equals 78; white count 7.2 hemoglobin 16.3 hematocrit 49.4 platelet count 155 pro time 11.3 INR 0.95 PTT is 29 seconds urinalysis 1.025 pH is 5.5 dipsticks negative EKG and his rhythm at 52 with intervals of 0.1 6.10.38 axis of 30 normal morphology Problems: (1) Lumbar disc disease with radiculopathy Status: Chronic Comment: He is being brought in electively for repair of this after failure of routine standard outpatient attempts. I am in agreement (2) Pre-op evaluation Status: Acute Comment: At this time he is an acceptable surgical candidate and I concur with plans to proceed with surgery. He is at average surgical risk as compared to his age-matched peers and should do well using all standard and routine anesthesia precautions. Using the modified Butts's criteria he is at low risk HPI/ROS Admit Date/Time Admit Date/Time July 03, 2017 Hx of Present Illness Preoperative evaluation and history and physical ROS 31-year-old male status post prior L4-L5 discectomy who has had recurrent symptoms on setting several months after the first surgery. Brought in electively to correct the new injury Constitutional: no complaints (No fevers chills or sweats) Eyes: no complaints ENT: no complaints, other (URI presently for the last 48 hours and clearing) Respiratory: no complaints Cardiovascular: no complaints Gastrointestinal: no complaints Genitourinary: no complaints Musculoskeletal: back pain Skin: no complaints Neurologic: no complaints Endocrine: no complaints Lymphatic: no complaints Psychological: nl mood/affect, no complaints PMH/Family/Social Past Medical History Medications-none Allergies-none Medical History: other (Lumbar disc disease; usual childhood diseases; history of varicella) Past Surgical History Past Surgical Hx: other (Status post L4-5 discectomy) Family History Significant Family History: diabetes, hypertension, other (Positive migraine syndrome; negative for anesthesia reactions) Social History Born in [facility] and raised; high school education with a experience; single lives with his parents and several pets; previously worked building maintenance Alcohol Use: none Smoking Status: Never smoker Drug Use: none Exam/Review of Systems Vital Signs Vitals Equals 5 feet 10-1/4 inches; weight 240.4 pounds; temperature 98.4; pulse 72; blood pressure 136/74; respiratory rate equals 18 Exam Constitutional: alert, oriented Head: atraumatic, normocephalic Eyes: EOMI, PERRL, nl conjunctiva, nl lids, nl sclera ENMT: mucosa pink and moist, nl external ears & nose, nl lips & teeth, nl nasal mucosa & septum Neck: non-tender, supple Respiratory: clear to auscultation, normal air movement Cardiovascular: nl pulses, regular rate and rhythm Gastrointestinal: nl liver, spleen, non-tender, soft Musculoskeletal: nl extremities to inspection, nl gait and stance Extremities: normal pulses Neurological: INSPECTOR GOVERNMENT PROPERTY II-XII intact, nl mental status, nl speech, nl strength Skin: nl turgor, rash or lesions Medications Medications No medications no allergies Copies To: CC: JANICE HICKS MD, JOSHUA A MD Jun 28, 2017 09:57
[2017-06-30 13:55] VITALS: Ht 177.8 cm; Wt 109.0 kg
[~2017-07-03] VITALS: Ht 177.8 cm; Wt 109.0 kg
[2017-07-03] VITALS (22 sets, daily range): BP systolic 115–155; BP diastolic 59–78; PULSE 68–98; RESP 15–20
[2017-07-03] MEDS ORDERED: CEFAZOLIN 2 GM/50 ML (PMX) 50 ML IVPB SCH (06:00)
[2017-07-03] MEDS ORDERED: PROPOFOL 20 ML ONE (06:50)
[2017-07-03] MEDS ORDERED: NEOSTIGMINE 3 MG/3 ML SYRINGE ONE ×2 (06:50→09:03)
[2017-07-03] MEDS ORDERED: MEPERIDINE 100 MG INJ ONE (06:50)
[2017-07-03] MEDS ORDERED: GLYCOPYRROLATE 0.4 MG INJ ONE ×3 (06:50→09:03)
[2017-07-03] MEDS ORDERED: LIDOCAINE 2% (SDV) 5 ML INJ ONE (06:50)
[2017-07-03] MEDS ORDERED: SUCCINYLCHOLINE CHLORIDE 100 MG/5 ML SYG IV ONE (06:50)
[2017-07-03] MEDS ORDERED: ROCURONIUM 50 MG INJ ONE ×2 (06:50→07:51)
--- NOTE | 2017-07-03 06:52 | HPN ---
Date/Time of Note Date/Time of Note DATE: 07/03/17 TIME: 06:52 Interval H&P Admission Note Pt. seen H&P reviewed: No system changes JANICE HICKS MD Jul 03, 2017 06:52
[2017-07-03] MEDS ORDERED: GELATIN SIZE 100 SPONGE ONE (06:56)
[2017-07-03] MEDS ORDERED: POLYMYXIN/BACITRACIN 1L IRRIG ONE (06:56)
[2017-07-03] MEDS ORDERED: BUPIVACAINE 0.25% (MPF) 10 ML 10 ML VIAL ONE (06:56)
[2017-07-03] MEDS ORDERED: THROMBIN 5000 UNIT VIAL ONE ×2 (07:00→08:51)
[2017-07-03] MEDS ORDERED: hydrALAzine 20 MG INJ ONE (07:31)
[2017-07-03] MEDS ORDERED: LABETALOL HCL 20MG INJ ONE (07:44)
[2017-07-03] MEDS ORDERED: MEPERIDINE 25 MG INJ IV PRN (08:00)
[2017-07-03] MEDS ORDERED: EPHEDrine SULFATE 50 MG/5 ML SYG IV PRN (08:00)
[2017-07-03] MEDS ORDERED: ONDANSETRON 4 MG INJ IV PRN ×2 (08:00→10:00)
[2017-07-03] MEDS ORDERED: HYDROmorphONE (0.2 MG/ML) 10ML SYG IV PRN ×2 (08:00)
[2017-07-03] MEDS ORDERED: LABETALOL HCL 20MG INJ IV PRN (08:00)
[2017-07-03] MEDS ORDERED: FENTAnyl 50 MCG/ML VIAL IV PRN ×3 (08:00)
[2017-07-03] MEDS ORDERED: OXYCODONE/ACETAMINOPHEN (5/325) TAB PO PRN ×2 (08:00)
[2017-07-03] MEDS ORDERED: MIDAZOLAM 1 MG/ML 2 ML INJ IV PRN (08:00)
[2017-07-03] MEDS ORDERED: hydrALAzine 20 MG INJ IV PRN (08:00)
[2017-07-03] MEDS ORDERED: METOCLOPRAMIDE 10 MG INJ IV PRN (08:00)
[2017-07-03] MEDS ORDERED: DIPHENHYDRAMINE 50 MG INJ IV PRN (08:00)
[2017-07-03] MEDS ORDERED: THROMBIN(HUM PLAS)/FIBRINOG/CA 5 ML VIAL TOP ONE (08:59)
[2017-07-03] MEDS ORDERED: ONDANSETRON 4 MG INJ ONE (09:02)
--- NOTE | 2017-07-03 09:49 | RADRPT ---
PROCEDURE: XR lumbar spine CLINICAL INDICATION: Microdiskectomy TECHNIQUE: Cross-table lateral view of the lumbar spine obtained COMPARISON: 07/03/2017 FINDINGS: Instruments present posteriorly at the approximately L5 level. Relative straightening of the lumbar lordosis, disc space narrowing at L5-S1, and L4-5 are again noted. IMPRESSION: Intraoperative lumbar spine radiograph for localization as described above. RPTAT: VV .Maico Barriga MD, Date Time Electronically viewed and signed by .Maico Barriga MD, on 07/03/2017 09:48 .O/
--- NOTE | 2017-07-03 09:49 | SIPON ---
Date/Time of Note Date/Time of Note DATE: 07/03/17 TIME: 09:42 Operative Report Preoperative Diagnosis Recurrent disc herniation L4-5 on the right Postoperative Diagnosis Same Operation/Procedure Performed Redo right hemilaminotomy L4 Redo microdiscectomy L4-5 on the right Medial facetectomy and foraminotomy L4-5 on the right Repair of iatrogenic dural tear L5 nerve root on the right Revision of scar (10 cm) Lateral localizing lumbar radiographs (multiple) Intraoperative nerve monitoring (1.5 hours) Surgeon see signature line behavioral health assistant Kayla Burgos PA-C Anesthesia: general Estimated blood loss: 50 - 100 ml's Transfusion Required none Specimen Disc material L4-5 on the right Grafts/Implants none Complications none JANICE HICKS MD Jul 03, 2017 09:49
--- NOTE | 2017-07-03 09:49 | RADRPT ---
PROCEDURE: XR lumbar spine CLINICAL INDICATION: Microdiskectomy TECHNIQUE: Cross-table lateral view of the lumbar spine obtained COMPARISON: 10/24/2016 FINDINGS: [place]ell present posteriorly at the approximately L3-4, L5 level. Relative straightening of the lumba r lordosis, disc space narrowing at L5-S1, and L4-5 are again noted. IMPRESSION: Intraoperative lumbar spine radiograph for localization as described above. RPTAT: VV .Maico Barriga MD, MD Date Time Electronically viewed and signed by .Maico Barriga MD, on 07/03/2017 09:49 .O/
--- NOTE | 2017-07-03 09:50 | RADRPT ---
PROCEDURE: XR lumbar spine CLINICAL INDICATION: Microdiskectomy TECHNIQUE: Cross-table lateral view of the lumbar spine obtained COMPARISON: 07/03/2017 FINDINGS: Instruments present posteriorly at the approximately L4-5 level. Relative straightening of the lumba r lordosis, disc space narrowing at L5-S1, and L4-5 are again noted. IMPRESSION: Intraoperative lumbar spine radiograph for localization as described above. RPTAT: VV .Maico Barriga MD, MD Date Time Electronically viewed and signed by .Maico Barriga MD, on 07/03/2017 09:49 .O/
[2017-07-03] MEDS ORDERED: CEPASTAT LOZENGE MT PRN (10:00)
[2017-07-03] MEDS ORDERED: BETHANECHOL 25 MG TAB PO PRN (10:00)
[2017-07-03] MEDS: HYDROmorphONE 0.2 MG/ML PCA IV SCH ×2 (10:00→17:30)
[2017-07-03] MEDS ORDERED: DIPHENHYDRAMINE 50 MG CAP PO PRN (10:00)
[2017-07-03] MEDS ORDERED: ZOLPIDEM 5 MG TAB PO PRN (10:00)
[2017-07-03] MEDS ORDERED: PROCHLORPERAZINE 10 MG TAB PO PRN (10:00)
[2017-07-03] MEDS ORDERED: AL HYDROX/MG HYDROX/SIMETH 30 ML CUP PO PRN (10:00)
[2017-07-03] MEDS ORDERED: HYDROCODONE/APAP (5/325) TAB PO PRN (10:00)
[2017-07-03] MEDS ORDERED: DIAZEPAM 5 MG/ML SYG IM PRN (10:00)
[2017-07-03] MEDS ORDERED: NALOXONE (0.4 MG/ML) INJ IV PRN (10:00)
[2017-07-03] MEDS ORDERED: NACL 0.9% 3 ML SYG IV SCH (10:00)
[2017-07-03] MEDS ORDERED: TRIMETHOBENZAMIDE 100 MG/ML VIAL IM PRN (10:00)
[2017-07-03] MEDS: HYDROmorphONE (0.2 MG/ML) 10ML SYG IV PRN ×3 (10:03→10:18)
[2017-07-03] MEDS: DEXTROSE 5%-0.45% NACL 1,000 ML IV SCH ×2 (10:59→21:48)
[2017-07-03] MEDS: CEFAZOLIN 1 GM/50 ML (PMX) 50 ML IVPB SCH ×3 (11:30→23:42)
--- NOTE | 2017-07-03 11:32 | OPR ---
DATE OF OPERATION: 07/03/2017 PREOPERATIVE DIAGNOSIS: Recurrent disk herniation, L4-L5 centrally and to the right. POSTOPERATIVE DIAGNOSIS: Recurrent disk herniation L4-L5 centrally and to the right. OPERATION PROCEDURES: 1. Redo right hemilaminotomy, L4. 2. Microdiskectomy, L4-L5 on the right. 3. Medial facetectomy and foraminotomy, L4-5 on the right. 4. Repair of iatrogenic dural tear of the L5 root sleeve on the right. 5. Revision of scar (10 cm). 6. Lateral localized lumbar radiographs (multiple). 7. Intraoperative nerve monitoring (1.5 hours). TRANSPORTATION PROGRAM DIRECTOR: Regis Stewart MD SALES EFFECTIVENESS MANAGER: Kayla Burgos PA-C ANESTHESIA: General endotracheal. ANESTHESIOLOGIST: Marquise Ivy MD ESTIMATED BLOOD LOSS: 50 mL, none replaced. DRAINS: Two medium Hemovac drains employed. COMPLICATIONS: None. PERTINENT HISTORY AND PHYSICAL: This is a 31-year-old male who sustained an injury to his back in t he course of his employment on 04/13/2015. He has had extensive care since that time including prev ious lumbar surgery on 10/24/2016. He had recurrent back and right leg pain and a postop MRI scan s howed a recurrent disk herniation at L4-L5 centrally and to the right. Treatment options were discu ssed with the patient, who elected to proceed with surgery. OPERATIVE FINDINGS AT SURGERY: A moderate central and right-sided recurrent disk herniation at L4-L 5 on the right was confirmed. The baseline intraoperative nerve monitoring revealed a decrease in t he right L4 potential of 50%, the right L5 potential of 40%, the left L5 potential of 20%. These al l returned to normal at the completion of surgery. OPERATIVE PROCEDURE: With the patient in supine position after satisfactory induction of general en dotracheal anesthesia by Dr. Jace Ivy, the patient was turned to the prone kneeling position on [facility] frame. All pressure points were carefully padded. Back was prepped and draped in usual sterile fashion. Athrombic pumps were applied to the legs below the knees to prevent venous stasis during and after procedure. An indwelling Barrios catheter was also placed preoperative to facilitate bladder drainage. Two spinal needles were placed next to what was felt to be the L3 spinous proces s and the L4-L5 disk space. A lateral roentgenogram was taken to confirm anatomic localization. A 10 cm incision was carried out midline from L3-L5 through the previous scar, through skin and subcut aneous tissue to the fascia after skin was infiltrated with 0.25% Marcaine without epinephrine for p ostoperative analgesia. Superficial retractors were placed and hemostasis secured with electrocaute ry. The fascia was incised over the spinous process of L3 with a hot knife and a bilateral subperiosteal dissection carried out at the L3-L4 level. Deep retractors were placed and deep hemostasis secured with electrocautery. The fascia was incised down to L5, and the facet structures at L3-L4, L4-L5 b ilaterally exposed with sharp dissection. The operating microscope was then moved into place. The scar was peeled off of the medial aspect of the L4-L5 joint, and a medial facetectomy and foraminoto my was accomplished using small hand osteotome, mallet, Kerrison punches and curettes. The L5 root was mobilized medially and protected with Rekha nerve root retractor using microdissection techni que. This revealed a herniation of the L4-5 disk. A 15 blade knife used to cut a rectangular windo w in the annulus and posterior longitudinal ligament and multiple degenerative disk fragments were h arvested with pituitary rongeurs and sent to laboratory for pathologic study. Additional fragments were harvested using Carlos Manuel curettes. A thorough search of the floor of the canal was made with an arthroscopic probe. No additional fragments were encountered. The epidural hemostasis was secured with bipolar electrocautery on a low setting. At this point, it appeared that there was a very tiny tear on the lateral aspect of the root sleeve of the L5 nerve root with a couple of drops of CSF in the wound. The 1 inch x 1 inch Duragen Plus p ledget was then placed over the lateral aspect of the root sleeve, and covered with fibrin glue. A final Valsalva maneuver by the anesthesiologist revealed no CSF leakage. Two medium Hemovac drains were then inserted into the wound, one below the fascia and one above the fascia, and the wound was then closed using #1 Stratafix sutures used on the fascia and paralumbar musculature, 2-0 Vicryl Str atafix sutures on the subcu tissue, and a 4-0 Vicryl subcuticular cosmetic closing suture on the ski n. Dermabond and sterile compressive dressings were applied. Patient having tolerated procedure we ll was then turned to supine position onto his bed and extubated by Dr. Jace Ivy. He was transport ed to recovery room in satisfactory condition. At the conclusion of the procedure, sponge, instrume nt, and needle counts were all correct. NEED FOR PUBLIC HEALTH WORKER: During this spinal surgical procedure, my chiropractor assistant was used to retrac t and protect the spinal nerves and dural sac. My chiropractor assistant also employed the suction catheters to e vacuate blood from the surgical field to improve visualization of the neural structures. The assista nt was medically necessary to facilitate the completion of the surgery in a safe and expeditious man ner. [facility] regulations, as well as hospital bylaws, preclude the use of non-licensed [facility] care personnel such as operating room technicians, to perform these functions. Throughout the procedure, neural monitoring was carried out by [employer] including EMG, SSEP and MEP monitoring of the L3, L4, L5, and S1 nerve roots bilaterally along with spinal cord potentials. These were interpreted by a neurologist employed by [employer]. Dictated By: REGIS STEWART MD TM/NTS Conf#: [id number] DID#: [id number] CC: MICHELL CUNNINGHAM MD;*End*
--- NOTE | 2017-07-03 13:54 | CONS ---
Date/Time of Note Date/Time of Note DATE: 07/03/17 TIME: 13:52 Assessment/Plan Assessment/Plan Chief Complaint/Hosp Course Chest x-ray demonstrate normal bones and soft tissue normal cardiac size and silhouette normal lungs without TB; the 141 potassium 4.4 chloride 104 bicarb 29 BUN 12 creatinine 0.9 random blood sugar 108 NE: ALT equals 78; white count 7.2 hemoglobin 16.3 hematocrit 49.4 platelet count 155 pro time 11.3 INR 0.95 PTT is 29 seconds urinalysis 1.025 pH is 5.5 dipsticks negative EKG and his rhythm at 52 with intervals of 0.1 6.10.38 axis of 30 normal morphology Problems: (1) Lumbar disc disease with radiculopathy Status: Chronic Comment: He is recuperating in bed immediately postop. We will see the next 24 hours how he does to help shape our goals and direction with therapy (2) Status post lumbar laminectomy Onset Date: ~ 07/03/2017 Status: Acute Comment: Stable postop, expected therapeutics Consultation Date/Type/Reason Admit Date/Time Jul 03, 2017 at 05:08 Initial Consult Date July 03 2017 Type of Consultation: Internal medicine Reason for Consultation Postoperative assistance Referring Provider: JANICE HICKS MD 24 HR Interval Summary Free Text/Dictation Patient reports she is having a lot of pain in his right thigh but otherwise is doing well. Exam/Review of Systems Vital Signs Vitals Vital Signs Date Time Temp Pulse Resp B/P Pulse Ox O2 Delivery O2 Flow Rate FiO2 07/03/17 13:45 93 128/62 95 Room Air 07/03/17 13:00 16 07/03/17 11:00 98.1 Exam Constitutional: alert, oriented Neck: non-tender, supple Respiratory: clear to auscultation, normal air movement Cardiovascular: nl pulses, regular rate and rhythm Medications Medications Current Medications Cefazolin Sodium/ Dextrose 50 ml @ 100 mls/hr PREOP IVPB ; Start 07/03/17 at 06 :00; Stop 07/03/17 at 16:00 Dextrose/Sodium Chloride (D5-1/2ns) 1,000 ml @ 100 mls/hr Q10H IV Last administered on 07/03/17t 10:59; Admin Dose 100 MLS/HR; Start 07/03/17 at 09:39 Acetaminophen/ Hydrocodone Bitart ([place] (5/325)) 1 tab Q4H PRN PO PAIN LEVEL 1 -5; Start 07/03/17 at 10:00 Acetaminophen/ Hydrocodone Bitart 2 tab 2 tab Q4H PRN PO PAIN LEVEL 6-10; Start 07/03/17 at 10:00 Cefazolin Sodium (Ancef 1 Gm/50 ml (Pmx)) 50 ml @ 100 mls/hr Q6 IVPB Last administered on 07/03/17t 11:30; Admin Dose 100 MLS/HR; Start 07/03/17 at 12:00 ; Stop 07/04/17 at 06:29 Zolpidem Tartrate (Ambien) 5 mg HS PRN PO INSOMNIA; Start 07/03/17 at 10:00 Prochlorperazine (Compazine) 10 mg Q4H PRN PO NAUSEA AND/OR VOMITING; Start at 10:00 Trimethobenzamide HCl (Tigan) 200 mg Q4H PRN IM NAUSEA AND/OR VOMITING; Start 07/03/17 at 10:00 Ondansetron HCl (Zofran Inj) 4 mg Q6H PRN IV NAUSEA AND/OR VOMITING Last administered on 07/03/17t 10:59; Admin Dose 4 MG; Start 07/03/17 at 10:00 Al Hydrox/Mg Hydrox/Simethicone (Mag-Al Plus) 15 ml Q4H PRN PO CONSTIPATION; Start 07/03/17 at 10:00 Docusate Sodium (Colace) 100 mg BID PO ; Start 07/04/17 at 09:00 Acetaminophen (Tylenol Tab) 650 mg Q4H PRN PO TEMP GREATER THAN 101F OR RAIN; Start 07/03/17 at 10:00 Ascorbic Acid (Vitamin C) 1,000 mg BID PO ; Start 07/04/17 at 09:00 Ferrous Sulfate (Ferrous Sulfate (Ec)) 325 mg TID PO ; Start 07/04/17 at 09:00 Ranitidine HCl (Zantac) 150 mg BID PO ; Start 07/03/17 at 21:00 Diazepam (Valium) 5 mg Q4H PRN PO MUSCLE SPASMS; Start 07/03/17 at 10:00 Diazepam (Valium) 5 mg Q4H PRN IM MUSCLE SPASMS; Start 10/9/17 at 10:00 Phenol (Cepastat Lozenge) 1 lozenge PRN PRN MT SORE THROAT; Start 07/03/17 at 10:00 Bethanechol Chloride (Urecholine) 25 mg PRN PRN PO UNABLE TO VOID; Start at 10:00 Diphenhydramine HCl (Benadryl) 50 mg Q6H PRN PO PRURITUS; Start 07/03/17 at 10: 00 Hydromorphone HCl (Dilaudid CLEAT MAKER) Q4PCA IV Last administered on 07/03/17t 10:00 ; Admin Dose 6 MG; Start 07/03/17 at 10:00 Naloxone HCl (Narcan) 0.2 mg Q2M PRN IV RR 8 BREATHS/MIN OR LESS; Start at 10:00 MICHELL CUNNINGHAM MD Jul 03, 2017 13:54
[2017-07-03] MEDS: DIAZEPAM 5 MG TAB PO PRN (17:15)
[2017-07-03] MEDS: morphine 1 MG/ML 30 ML (PCA) IV SCH (18:04)
[2017-07-03] MEDS: RANITIDINE 150 MG TAB PO SCH (21:48)
[2017-07-04 00:22] VITALS: BP 122/59; RESP 20
[2017-07-04] MEDS: morphine 1 MG/ML 30 ML (PCA) IV SCH (01:53)
[2017-07-04] MEDS: ACETAMINOPHEN 325 MG TAB PO PRN ×2 (01:56→16:57)
[2017-07-04] MEDS: DIAZEPAM 5 MG TAB PO PRN ×3 (04:59→22:46)
[2017-07-04 05:17] LABS: HEMATOCRIT 39.2 % (42.0-52.0); HEMOGLOBIN 13.8 g/dl (14.0-18.0)
[2017-07-04] MEDS: CEFAZOLIN 1 GM/50 ML (PMX) 50 ML IVPB SCH (05:38)
[2017-07-04] MEDS: DEXTROSE 5%-0.45% NACL 1,000 ML IV SCH ×2 (05:39→15:33)
[2017-07-04 05:45] LABS: CALCIUM 8.5 mg/dl (8.4-10.2); CREATININE 0.97 mg/dl (0.61-1.24); POTASSIUM 3.8 mmol/L (3.5-5.1)
--- NOTE | 2017-07-04 07:07 | PN ---
Date/Time of Note Date/Time of Note DATE: 07/04/17 TIME: 07:06 Assessment/Plan Lines/Catheters IV Catheter Type (from Nrs): Peripheral IV Barrios in Place (from Nrs): No Subjective 24 Hr Interval Summary Patient is postop day #1 following a redo microdiscectomy at L4-5 on the right. He is afebrile. He has some cramping in his right thigh. A.m. labs are unremarkable. Neurovascular structures are intact distally. Hemovac output was 75 cc for this shift. It will be left in place. Physical therapy will mobilize the patient 4 times daily as tolerated. Exam/Review of Systems Vital Signs Vitals Vital Signs Date Time Temp Pulse Resp B/P Pulse Ox O2 Delivery O2 Flow Rate FiO2 07/04/17 04:54 20 07/04/17 00:22 98.4 90 122/59 91 07/03/17 13:45 Room Air Intake and Output 07/03/17 07/03/17 07/04/17 15:00 23:00 07:00 Intake Total 2750 ml 1530 ml 2050 ml Output Total 450 ml 75 ml 1175 ml Balance 2300 ml 1455 ml 875 ml Results Result Diagram: 07/04/17 0446 07/04/17 0446 JANICE HICKS MD Jul 04, 2017 07:07
[2017-07-04] MEDS ORDERED: BETHANECHOL 25 MG TAB PO PRN (08:00)
[2017-07-04 08:29] VITALS: BP 117/57; RESP 18
[2017-07-04] MEDS: FERROUS SULFATE (EC) 325 MG TAB PO SCH ×3 (08:32→21:05)
[2017-07-04] MEDS: ASCORBIC ACID 500 MG TAB PO SCH ×2 (08:33→21:05)
[2017-07-04] MEDS: RANITIDINE 150 MG TAB PO SCH ×2 (08:33→21:05)
[2017-07-04] MEDS: HYDROCODONE/APAP (5/325) TAB PO PRN ×3 (08:33→19:56)
[2017-07-04] MEDS: DOCUSATE SODIUM 100 MG CAP PO SCH ×2 (08:33→21:05)
[2017-07-04 16:11] VITALS: BP 118/59; RESP 18
--- NOTE | 2017-07-04 18:14 | CONS ---
Date/Time of Note Date/Time of Note DATE: 07/04/17 TIME: 18:12 Assessment/Plan Assessment/Plan Chief Complaint/Hosp Course Chest x-ray demonstrate normal bones and soft tissue normal cardiac size and silhouette normal lungs without TB; the 141 potassium 4.4 chloride 104 bicarb 29 BUN 12 creatinine 0.9 random blood sugar 108 ND: ALT equals 78; white count 7.2 hemoglobin 16.3 hematocrit 49.4 platelet count 155 pro time 11.3 INR 0.95 PTT is 29 seconds urinalysis 1.025 pH is 5.5 dipsticks negative EKG and his rhythm at 52 with intervals of 0.1 6.10.38 axis of 30 normal morphology Problems: (1) Status post lumbar laminectomy Onset Date: ~ 07/03/2017 Status: Acute Comment: I am concerned with the amount of leg pain he is having with the second surgery may have some nerve irritation in his back that will be slowly healing. He may be a candidate for treatment with gabapentin. I would appreciate the orthopedic surgeons input on this concept. He is otherwise ready for discharge in the morning. (Assuming no new complications) Consultation Date/Type/Reason Admit Date/Time Jul 03, 2017 at 05:08 Initial Consult Date July 03 2017 Type of Consultation: Internal medicine Reason for Consultation Postoperative assistance after back surgery. Referring Provider: JANICE HICKS MD 24 HR Interval Summary Free Text/Dictation Patient reports that he still having a significant amount of cramping and pain in her right upper leg. He is up and moving around. Please note we do have one logistical issue he is reliant upon his father for driving him home and his father cannot drive after dark Constitutional: no complaints Detailed Summary Respiratory: no complaints Cardiovascular: no complaints Gastrointestinal: no complaints Exam/Review of Systems Vital Signs Vitals Vital Signs Date Time Temp Pulse Resp B/P Pulse Ox O2 Delivery O2 Flow Rate FiO2 07/04/17 16:11 99.5 81 18 118/59 98 07/03/17 13:45 Room Air Intake and Output 07/03/17 07/03/17 07/04/17 14:59 22:59 06:59 Intake Total 2750 ml 1530 ml 2100 ml Output Total 450 ml 75 ml 1175 ml Balance 2300 ml 1455 ml 925 ml Exam Constitutional: alert, oriented Neck: non-tender, supple Cardiovascular: nl pulses, regular rate and rhythm Gastrointestinal: nl liver, spleen, non-tender, soft Results Result Diagram: 07/04/17 0446 07/04/17 0446 Results 24 hrs Laboratory Tests Test 07/04/17 04:46 Hemoglobin 13.8 L Hematocrit 39.2 L Sodium Level 139 Potassium Level 3.8 Chloride Level 103 Carbon Dioxide Level 27 Anion Gap 13 Blood Urea Nitrogen 10 Creatinine 0.97 Glucose Level 114 Calcium Level 8.5 Hepatitis B Surface Antigen NEGATIVE Hepatitis C Antibody NEGATIVE Medications Medications Current Medications Dextrose/Sodium Chloride (D5-1/2ns) 1,000 ml @ 100 mls/hr Q10H IV Last administered on 07/03/17 21:48; Admin Dose 100 MLS/HR; Start 07/03/17 at 09:39 Acetaminophen/ Hydrocodone Bitart ([place] (5/325)) 1 tab Q4H PRN PO PAIN LEVEL 1 -5; Start 07/03/17 at 10:00 Acetaminophen/ Hydrocodone Bitart ([place] (5/325)) 2 tab Q4H PRN PO PAIN LEVEL 6 -10 Last administered on 07/04/17 15:35; Admin Dose 2 TAB; Start 07/03/17 at 10:00 Zolpidem Tartrate (Ambien) 5 mg HS PRN PO INSOMNIA; Start 07/03/17 at 10:00 Prochlorperazine (Compazine) 10 mg Q4H PRN PO NAUSEA AND/OR VOMITING; Start at 10:00 Trimethobenzamide HCl (Tigan) 200 mg Q4H PRN IM NAUSEA AND/OR VOMITING; Start 07/03/17 at 10:00 Ondansetron HCl (Zofran Inj) 4 mg Q6H PRN IV NAUSEA AND/OR VOMITING Last administered on 07/03/17 10:59; Admin Dose 4 MG; Start 07/03/17 at 10:00 Al Hydrox/Mg Hydrox/Simethicone (Mag-Al Plus) 15 ml Q4H PRN PO CONSTIPATION; Start 07/03/17 at 10:00 Docusate Sodium (Colace) 100 mg BID PO Last administered on 07/04/17 08:33; Admin Dose 100 MG; Start 07/04/17 at 09:00 Acetaminophen (Tylenol Tab) 650 mg Q4H PRN PO TEMP GREATER THAN 101F OR RAIN Last administered on 07/04/17 16:57; Admin Dose 650 MG; Start 07/03/17 at 10: 00 Ascorbic Acid (Vitamin C) 1,000 mg BID PO Last administered on 07/04/17 08:33 ; Admin Dose 1,000 MG; Start 07/04/17 at 09:00 Ferrous Sulfate (Ferrous Sulfate (Ec)) 325 mg TID PO Last administered on 07/04 12:58; Admin Dose 325 MG; Start 07/04/17 at 09:00 Ranitidine HCl (Zantac) 150 mg BID PO Last administered on 07/04/17 08:33; Admin Dose 150 MG; Start 07/03/17 at 21:00 Diazepam (Valium) 5 mg Q4H PRN PO MUSCLE SPASMS Last administered on 12:03; Admin Dose 5 MG; Start 07/03/17 at 10:00 Diazepam (Valium) 5 mg Q4H PRN IM MUSCLE SPASMS; Start 07/03/17 at 10:00 Phenol (Cepastat Lozenge) 1 lozenge PRN PRN MT SORE THROAT; Start 07/03/17 at 10:00 Bethanechol Chloride (Urecholine) 25 mg PRN PRN PO UNABLE TO VOID; Start at 10:00 Diphenhydramine HCl (Benadryl) 50 mg Q6H PRN PO PRURITUS; Start 07/03/17 at 10: 00 Naloxone HCl (Narcan) 0.2 mg Q2M PRN IV RR 8 BREATHS/MIN OR LESS; Start at 10:00 Bethanechol Chloride (Urecholine) 25 mg PRN PRN PO UNABLE TO VOID; Start 07/04 at 08:00 MICHELL CUNNINGHAM MD Jul 04, 2017 18:14
[2017-07-04 19:10] VITALS: BP 115/55; RESP 18
[2017-07-05] MEDS: DEXTROSE 5%-0.45% NACL 1,000 ML IV SCH ×2 (01:24→11:26)
[2017-07-05 02:07] VITALS: BP 116/59; RESP 18
--- NOTE | 2017-07-05 07:11 | PN ---
Date/Time of Note Date/Time of Note DATE: 07/05/17 TIME: 07:10 Assessment/Plan Lines/Catheters IV Catheter Type (from Nrsg): Saline Lock Barrios in Place (from Nrsg): No Subjective 24 Hr Interval Summary Patient is postop day #1 following a redo microdiscectomy L4-5 on the right. Resting comfortably. He is afebrile this morning. Neurovascular structures were intact distally he has been cleared by physical therapy for discharge. Given strict discharge precautions and instructions as well as follow-up arrangements. Exam/Review of Systems Vital Signs Vitals Vital Signs Date Time Temp Pulse Resp B/P Pulse Ox O2 Delivery O2 Flow Rate FiO2 07/05/17 02:07 98.4 74 18 116/59 97 07/04/17 20:00 Nasal Cannula 2.0 Intake and Output 07/04/17 07/04/17 07/05/17 15:00 23:00 07:00 Intake Total 300 ml 1400 ml 600 ml Output Total 25 ml Balance 275 ml 1400 ml 600 ml Results Result Diagram: 07/04/17 0446 07/04/17 0446 JANICE HICKS MD Jul 05, 2017 07:11
[2017-07-05 08:27] VITALS: BP 104/53; RESP 18
[2017-07-05] MEDS: FERROUS SULFATE (EC) 325 MG TAB PO SCH (09:06)
[2017-07-05] MEDS: DOCUSATE SODIUM 100 MG CAP PO SCH (09:06)
[2017-07-05] MEDS: ASCORBIC ACID 500 MG TAB PO SCH (09:06)
[2017-07-05] MEDS: RANITIDINE 150 MG TAB PO SCH (09:06)
[2017-07-05] MEDS: DIAZEPAM 5 MG TAB PO PRN (09:10)
[2017-07-05] MEDS: HYDROCODONE/APAP (5/325) TAB PO PRN (10:13)
== END 2017-07-05 12:00 | disposition home or self-care (01) | DRG 519 ==
LOC: REC 05:08 → MS1 11:00
PROVIDERS: ADMIT Orthopaedic Surgery; ATTEND Orthopaedic Surgery
PROC: 00QT0ZZ Repair Spinal Meninges, Open Approach (ICD-10-PCS; 2017-07-03)
PROC: 4A11X4G Monitoring of Peripheral Nervous Electrical Activity, Intraoperative, External Approach (ICD-10-PCS; 2017-07-03)
PROC: 0SB20ZZ Excision of Lumbar Vertebral Disc, Open Approach (ICD-10-PCS; principal; 2017-07-03 07:00)
DX: M51.16 Intervertebral disc disorders with radiculopathy, lumbar region (principal); G97.41 Accidental puncture or laceration of dura during a procedure; Y84.8 Other medical procedures as the cause of abnormal reaction of the patient, or of later complication, without mention of misadventure at the time of the procedure; Y92.234 Operating room of hospital as the place of occurrence of the external cause
CPT/HCPCS: 72020; 80048; 85014; 85018; 86803; 86850; 86900; 86901; 86920; 87340; 97116; 97162; 97530; C9250; J0360; J0690; J1170; J2175; J2270; J2405; J2710; J7042; J7999